=== PATIENT | female | born 1940 | race Caucasian/White ===

== ENCOUNTER → 2018-01-26 11:32 | Outpatient (CLI) | payer MEDICARE, OTHER, SELFPAY ==
[2018-01-26 13:27] LABS: Calcium 9.3 mg/dL (8.5-10.1); Free T4 (Free Thyroxine) 1.26 ng/dl (0.76-1.46); Thyroid Stimulating Hormone 0.48 uIU/ml (0.358-3.740)
[2018-01-27 13:55] LABS: Triiodothyronine (T3) Free 3.1 pg/mL (2.0-4.4)
== END ==
PROVIDERS: PCP Nurse Practitioner Family; Visit Provider Otolaryngology
DX: D49.7 Neoplasm of unspecified behavior of endocrine glands and other parts of nervous system (principal)
CPT/HCPCS: 36415; 82310; 84439; 84443; 84481

== ENCOUNTER → 2019-01-25 11:32 | Outpatient (CLI) | payer MEDICARE, OTHER, SELFPAY ==
[2019-01-25 13:29] LABS: Calcium 9.4 mg/dL (8.5-10.1); Free T4 (Free Thyroxine) 1.31 ng/dl (0.76-1.46); Thyroid Stimulating Hormone 1.17 uIU/ml (0.358-3.740)
[2019-01-27 17:07] LABS: Triiodothyronine (T3) Free 3.4 pg/mL (2.0-4.4)
== END ==
PROVIDERS: Visit Provider Otolaryngology
DX: E78.5 Hyperlipidemia, unspecified (principal); E07.9 Disorder of thyroid, unspecified
CPT/HCPCS: 36415; 82310; 84439; 84443; 84481

== ENCOUNTER → 2019-02-15 11:52 | Outpatient (CLI) | payer MEDICARE, OTHER, SELFPAY ==
[2019-02-15 14:14] LABS: Alanine Aminotransferase 36 U/L (12-78); Albumin Level 3.7 gm/dL (3.4-5.0); Alkaline Phosphatase 118 U/L (46-116); Aspartate Amino Transferase 25 U/L (15-37); Bilirubin,Direct 0.1 mg/dL (0.0-0.2); Bilirubin,Indirect 0.6 mg/dL (0.0-0.9); Bilirubin,Total 0.7 mg/dL (0.2-1.0); Chol/HDL Ratio 2.9 (1-3.5); Cholesterol 138 mg/dL (140-200); HDL Cholesterol 47 mg/dL (29-89); LDL Cholesterol 62 mg/dL (0-130); Total Protein,Serum 6.8 gm/dL (6.4-8.2); Triglycerides 143 mg/dL (30-200); VLDL Cholesterol 29 mg/dL (0-40)
== END ==
PROVIDERS: Visit Provider Physician Assistant
DX: E78.2 Mixed hyperlipidemia (principal); I25.10 Atherosclerotic heart disease of native coronary artery without angina pectoris; R06.09 Other forms of dyspnea
CPT/HCPCS: 36415; 80061; 80076

== ENCOUNTER → 2019-08-11 15:30 | Outpatient (CLI) | payer MEDICARE, OTHER, SELFPAY ==
[2019-08-11 15:34] LABS: MANUAL DIFFERENTIAL MANUAL DIFFERENTIAL (MANUAL DIFF)
[2019-08-11 16:01] LABS: Basophils # 0.1 K/mm3 (0-0.2); Basophils % 0.7 % (0.1-2.0); Eosinophils % 0.1 % (0.1-12.0); Hematocrit 41.8 % (37.0-47.0); Hemoglobin 14.2 g/dL (12.2-16.2); Lymphocytes # 2.5 K/mm3 (0.7-4.5); Lymphocytes % 19.4 % (10-50); Mean Corpuscular HGB Conc 33.9 g/dL (31.8-35.4); Mean Corpuscular Hemoglobin 31.6 pg (27.0-31.2); Mean Corpuscular Volume 93.4 fl (81-99); Monocytes # 0.4 K/mm3 (0.1-1.0); Neutrophils # 9.8 K/mm3 (1.8-7.8); Neutrophils % 76.9 % (37.0-80.0); Platelet Count 354 K/mm3 (142-424); Red Blood Count 4.48 M/mm3 (4.20-5.40); Red Cell Distribution Width 13.7 % (11.5-17.5); White Blood Count 12.7 K/mm3 (4.8-10.8)
[2019-08-11 18:25] LABS: Lymphocytes % 23 % (10-50); Monocytes % 7 % (2-9); Neutrophils % 70 % (42-76); Platelet Estimate Normal; RBC Morphology Normal; Total Cells Counted 100
[2019-08-11 19:57] LABS: Chloride 96 mmol/L (98-107); Potassium 4.1 mmoL/L (3.5-5.1); Sodium 134 mmol/L (136-145)
[2019-08-11 19:59] LABS: Alanine Aminotransferase 37 U/L (12-78); Aspartate Amino Transferase 33 U/L (14-36); Blood Urea Nitrogen 14 mg/dl (7-17); Estimated Glomerular Filt Rate 70 ml/min (>60); GFR (African American) 84 ML/MIN (>60)
[2019-08-11 20:00] LABS: Albumin Level 4.4 g/dl (3.5-5.0); Albumin/Globulin Ratio 1.8 (1.1-1.8); Alkaline Phosphatase 82 U/L (38-126); Anion Gap 13.1 mEq/L (5-15); Bilirubin,Total 0.6 mg/dl (0.2-1.3); Calcium 9.8 mg/dl (8.4-10.2); Carbon Dioxide 29 mmol/L (22.0-30.0); Globulin 2.5 g/dL (1.3-3.2); Glucose 99 mg/dl (74-100); Total Protein,Serum 6.9 g/dl (6.3-8.2)
== END ==
PROVIDERS: Visit Provider Otolaryngology
DX: J01.90 Acute sinusitis, unspecified (principal); R06.09 Other forms of dyspnea
CPT/HCPCS: 36415; 80053; 85007; 85014; 85018; 85048; 85049

== ENCOUNTER → 2019-08-23 08:10 | Outpatient (CLI) | payer MEDICARE, OTHER, SELFPAY ==
--- NOTE | 2019-08-23 08:24 | CT_ITS ---
PROCEDURE: CT SINUS WO CON CLINICAL HISTORY: sinusitis Chronic sinusitis, difficulty swallowing COMPARISON: No exams were available for comparison TECHNIQUE: Axial images obtained with sagittal and coronal reformats. All CT scans at the facility use one or more dose reduction, viz: automated exposure control, ma/kV adjustment per patient size (including targeted exams where dose is matched to indication, i.e. head), or iterative reconstruction technique. FINDINGS: The frontal, ethmoid, maxillary, and sphenoid sinuses have an unremarkable appearance with no significant mucosal thickening, masses, cysts, or air-fluid levels. There is moderate leftward nasal septal deviation. There are small bilateral neri bullosa slightly larger on the right. The ostiomeatal units are patent. There are mild to moderate osteoarthritic changes of the TMJs on both sides. No orbits have an unremarkable appearance IMPRESSION: 1. Unremarkable CT of the paranasal sinuses. No evidence of sinusitis. 2. Moderate leftward nasal septal deviation with bilateral neri bullosa right larger than left. 3. Bilateral TMJ arthropathy Dictated by: Terence Vazquez MD 08/23/2019 18:24 Electronically signed by Terence Vazquez MD in [place] 08/23/2019 18:24
--- NOTE | 2019-08-23 08:24 | CT_ITS ---
PROCEDURE: CT CHEST WO/W CON CLINCAL INDICATION: sinusitis Cough and congestion, difficulty swallowing COMPARISON: THY US THYROID from 11/17/2014 TECHNIQUE: IV Contrast: 75ml Optiray 350 Axial images obtained with sagittal and coronal reformats. All CT scans at the facility use one or more dose reduction, viz: automated exposure control, ma/kV adjustment per patient size (including targeted exams where dose is matched to indication, i.e. head), or iterative reconstruction technique. FINDINGS: HEART AND MEDIASTINAL STRUCTURES: Unenhanced images demonstrates mild coronary artery calcification. There is a small hiatal hernia. The left lobe of the thyroid gland is enlarged the causing some minimal deviation of the trachea toward the right. No mediastinal or hilar mass is evident. There is air present throughout the esophagus with a small air-fluid level in the esophagus which could be related to reflux. No mediastinal or hilar mass. No evidence of aortic aneurysm or dissection. LUNGS AND PLEURAL SPACES: There are atelectatic or fibrotic changes in the right lower lobe. There is eventration the diaphragm on the right posteriorly with right lower lobe volume loss. There are mild atelectatic changes in the left lung base with a calcified granuloma in the left lower lobe. No central obstructing lesions the BONY STRUCTURES: Kyphoscoliosis of the thoracic spine convex right. There is somewhat guevara-shaped hemithorax which may be seen with osteopenia UPPER ABDOMEN: Hiatal hernia ADDITIONAL FINDINGS: No other significant abnormalities. IMPRESSION: 1. Enlarged left lobe of the thyroid gland 2. Hiatal hernia with gas in the esophagus and esophageal air-fluid level. This may be seen with reflux or distal esophageal narrowing. Barium swallow may provide further evaluation. 3. Elevated right hemidiaphragm with right lower lobe volume loss with mild atelectatic change in the left lung base. By the Dictated by: Terence Vazquez MD 08/24/2019 08:15 Electronically signed by Terence Vazquez MD in [place] 08/24/2019 08:15
[2019-08-23 08:31] LABS: Chloride 98 mmol/L (98-107); Potassium 3.3 mmoL/L (3.5-5.1); Sodium 134 mmol/L (136-145)
[2019-08-23 08:33] LABS: Alanine Aminotransferase 42 U/L (12-78); Aspartate Amino Transferase 37 U/L (14-36); Blood Urea Nitrogen 11 mg/dl (7-17); Estimated Glomerular Filt Rate 70 ml/min (>60); GFR (African American) 84 ML/MIN (>60)
[2019-08-23 08:34] LABS: Albumin Level 4.6 g/dl (3.5-5.0); Albumin/Globulin Ratio 1.8 (1.1-1.8); Alkaline Phosphatase 73 U/L (38-126); Anion Gap 9.3 mEq/L (5-15); Bilirubin,Total 0.7 mg/dl (0.2-1.3); Calcium 9.7 mg/dl (8.4-10.2); Carbon Dioxide 30 mmol/L (22.0-30.0); Chol/HDL Ratio 2.3 (1-3.5); Cholesterol 160 mg/dl (140-200); Globulin 2.5 g/dL (1.3-3.2); Glucose 101 mg/dl (74-100); HDL Cholesterol 69 mg/dl (40-60); Total Protein,Serum 7.1 g/dl (6.3-8.2); Triglycerides 180 mg/dl (30-150); VLDL Cholesterol 36 mg/dL (0-40)
[2019-08-23 08:45] LABS: Direct LDL Cholesterol 80.46 mg/dL (100-129)
== END ==
PROVIDERS: PCP Nurse Practitioner Family; Visit Provider Otolaryngology
DX: J01.90 Acute sinusitis, unspecified (principal); R06.09 Other forms of dyspnea; E78.2 Mixed hyperlipidemia; I10 Essential (primary) hypertension
CPT/HCPCS: 36415; 70486; 71270; 80053; 80061; Q9967

== ENCOUNTER → 2019-11-09 08:40 | Outpatient (CLI) | payer MEDICARE, OTHER, SELFPAY ==
--- NOTE | 2019-11-09 08:40 | FL_ITS ---
PROCEDURE: FL BARIUM SWALLOW CLINICAL INDICATION: chronic cough and reflux. COMPARISON: No exams were available for comparison TECHNIQUE: FLUOROSCOPY TIME : 2 minutes 1 second. Single contrast esophagram was performed. Fluoroscopic spot images were obtained. FINDINGS: There is demonstrated normal swallowing mechanism. Age related tertiary contractions are seen in the esophagus. The esophagus remain in normal course and caliber. A small hiatal hernia is seen with real-time significant gastroesophageal reflux. No narrowing or stricture is visualized in the esophagus. There is no evidence of ulceration or other deformity noted within the stomach. IMPRESSION: A small hiatal hernia with gastroesophageal reflux is seen. Dictated by: Cheryl Cook 11/09/2019 11:49 Electronically signed by Cheryl Cook in [place] 11/09/2019 11:49
--- NOTE | 2019-11-09 08:40 | US_ITS ---
PROCEDURE: US THYROID CLINICAL INDICATION: thyroid nodule Thyroid nodule, prior right thyroidectomy COMPARISON: 11/17/2014 FINDINGS: There been a prior right thyroidectomy. The left lobe measures 4.4 x 2.3 cm with heterogeneous echogenicity. There is ill-defined area of decreased echogenicity in the lower pole on the left measuring 11 mm by 16 mm. This is ill-defined and may only represent heterogeneous echogenicity of the thyroid as opposed to a true nodule. This may have been present on an older exam of 11/17/2014. IMPRESSION: Prior right thyroidectomy. Questionable 16 x 11 mm heterogeneous nodule along the lower pole on the left. Recommend six-month follow-up. This may be unchanged compared to an older exam. Dictated by: Terence Vazquez MD 11/10/2019 10:18 Electronically signed by Terence Vazquez MD in [place] 11/10/2019 10:18
[2019-11-09 12:44] LABS: Thyroid Stimulating Hormone 0.56 uIU/mL (0.465-4.68)
[2019-11-09 16:47] LABS: Free T4 (Free Thyroxine) 1.97 ng/dl (0.78-2.19)
[2019-11-10 10:12] LABS: Thyroid Peroxidase Antibodies 9 IU/mL (0-34)
[2019-12-14 12:45] LABS: Thyroid Stimulating Immunoglob <0.10
== END ==
PROVIDERS: PCP Nurse Practitioner Family; Visit Provider Otolaryngology
DX: E03.9 Hypothyroidism, unspecified (principal); E04.1 Nontoxic single thyroid nodule
CPT/HCPCS: 36415; 74220; 76536; 84439; 84443; 84445; 86376

== ENCOUNTER → 2019-11-09 10:04 | Outpatient (CLI) | payer MEDICARE, OTHER, SELFPAY | PROVIDERS: Visit Provider Otolaryngology | DX: E03.9 Hypothyroidism, unspecified (principal) | CPT/HCPCS: 36415; 84439; 84443; 84445; 86376 ==

== ENCOUNTER → 2019-11-30 09:41 | Outpatient (CLI) | payer MEDICARE, OTHER, SELFPAY ==
[2019-11-30 10:30] VITALS: PULSE 86; PULSE 90
== END ==
PROVIDERS: PCP Nurse Practitioner Family; Visit Provider Internal Medicine Pulmonary Disease
DX: R06.00 Dyspnea, unspecified (principal)
CPT/HCPCS: 94060; 94640; 94727; 94729

== ENCOUNTER 2019-12-22 09:58 | Outpatient (RCR) | payer MEDICARE, OTHER, SELFPAY | END 2020-08-21 13:17 | disposition home or self-care (01) | LOC: PT 09:58 | PROVIDERS: Visit Provider Internal Medicine Pulmonary Disease | DX: R06.00 Dyspnea, unspecified (principal) ==

== ENCOUNTER → 2020-02-16 14:45 | Outpatient (CLI) | payer MEDICARE, OTHER, SELFPAY ==
[2020-02-16 16:07] LABS: Basophils % 0.4 % (0.1-2.0); Eosinophils # 0.2 K/mm3 (0.0-0.4); Eosinophils % 1.4 % (0.1-12.0); Hematocrit 40.4 % (37.0-47.0); Hemoglobin 15.2 g/dL (12.2-16.2); Lymphocytes # 4.8 K/mm3 (0.7-4.5); Lymphocytes % 41.6 % (10-50); Mean Corpuscular HGB Conc 37.6 g/dL (31.8-35.4); Mean Corpuscular Hemoglobin 35.1 pg (27.0-31.2); Mean Corpuscular Volume 93.5 fl (81-99); Mean Platelet Volume 8.6 fl (7.4-10.4); Monocytes # 0.8 K/mm3 (0.1-1.0); Monocytes % 6.7 % (1.7-9.3); Neutrophils # 5.7 K/mm3 (1.8-7.8); Neutrophils % 49.8 % (37.0-80.0); Platelet Count 296 K/mm3 (142-424); Red Blood Count 4.32 M/mm3 (4.20-5.40); Red Cell Distribution Width 13.7 % (11.5-17.5); White Blood Count 11.5 K/mm3 (4.8-10.8)
[2020-02-20 14:10] LABS: D001-IgE D pteronyssinus 0.13 kU/L (Class 0/I); D002-IgE D farinae <0.10 kU/L (Class 0); E001-IgE Cat Dander <0.10 kU/L (Class 0); E005-IgE Dog Dander <0.10 kU/L (Class 0); G002-IgE Bermuda Grass <0.10 kU/L (Class 0); G006-IgE Timothy Grass <0.10 kU/L (Class 0); I006-IgE Cockroach, German <0.10 kU/L (Class 0); Immunoglobulin E, Total 19 IU/mL (6-495); M001-IgE Penicillium chrysogen <0.10 kU/L (Class 0); M002-IgE Cladosporium herbarum <0.10 kU/L (Class 0); M003-IgE Aspergillus fumigatus <0.10 kU/L (Class 0); M006-IgE Alternaria alternata <0.10 kU/L (Class 0); T001-IgE Maple/Box Elder <0.10 kU/L (Class 0); T006-IgE Cedar, Mountain <0.10 kU/L (Class 0); T007-IgE Oak, White <0.10 kU/L (Class 0); T008-IgE Elm, American <0.10 kU/L (Class 0); T010-IgE Walnut <0.10 kU/L (Class 0); T011-IgE Maple Leaf Sycamore <0.10 kU/L (Class 0); T014-IgE Cottonwood <0.10 kU/L (Class 0); T015-IgE Ash, White <0.10 kU/L (Class 0); T022-IgE Pecan, Hickory <0.10 kU/L (Class 0); T070-IgE White Mulberry <0.10 kU/L (Class 0); W001-IgE Ragweed, Short <0.10 kU/L (Class 0); W011-IgE Thistle, Russian <0.10 kU/L (Class 0); W014-IgE Pigweed, Common <0.10 kU/L (Class 0); W016-IgE Rough Marshelder <0.10 kU/L (Class 0)
[2020-02-20 15:11] LABS: E072-IgE Mouse Urine <0.10 kU/L (Class 0)
[2020-02-21 10:52] LABS: Immunoglobulin E, Total 19 IU/mL (6-495)
== END ==
PROVIDERS: Visit Provider Internal Medicine Pulmonary Disease
DX: R06.2 Wheezing; J44.9 Chronic obstructive pulmonary disease, unspecified
CPT/HCPCS: 36415; 82785; 85025; 86003

== ENCOUNTER → 2020-05-07 08:59 | Outpatient (POV) | payer MEDICARE, OTHER, SELFPAY | PROVIDERS: Visit Provider Nurse Practitioner Family | DX: Z00.00 Encounter for general adult medical examination without abnormal findings (principal) ==

== ENCOUNTER → 2020-06-12 12:53 | Outpatient (CLI) | payer MEDICARE, OTHER, SELFPAY ==
--- NOTE | 2020-06-12 12:53 | US_ITS ---
PROCEDURE: US THYROID CLINICAL INDICATION: thyroid nodule Follow-up nodule COMPARISON: US US THYROID from 11/09/2019 FINDINGS: The right lobe has been removed. The left lobe measures 5 x 2 x 2.5 cm. There is a vague nodular area in the lower pole on the left not significantly changed. This area measures approximately 14 x 10 mm and is not significantly changed. IMPRESSION: No change status post right thyroidectomy and vague nodularity within the enlarged left lobe Dictated by: Terence Vazquez MD 06/12/2020 17:55 Terence Vazquez MD in [place] 06/12/2020 17:55
== END ==
PROVIDERS: PCP Nurse Practitioner Family; Visit Provider Otolaryngology
DX: E03.9 Hypothyroidism, unspecified (principal); E04.1 Nontoxic single thyroid nodule
CPT/HCPCS: 76536

== ENCOUNTER 2020-07-23 12:39 | Emergency (ER) | payer MEDICARE, OTHER, SELFPAY ==
[2020-07-23 13:15] VITALS: BP 138/89; PULSE 81; RESP 19; TEMP 37; O2SAT 100; BMI 27.6
--- NOTE | 2020-07-23 13:54 | HMH.EDUTC ---
[facility] [place] Dis[place] Clinical Impression: Sinusitis Qualifiers: Sinusitis location: unspecified location Chronicity: unspecified Qualified Code(s): J32.9 - Chronic sinusitis, unspecified Disposition: Home, Self-Care Condition on Discharge: Good Instructions: Sinusitis, DI for Cough -- Adult, Benzonatate Additional Instructions: *Monitor Temp, Over the counter Motrin or Tylenol as directed/as needed Tylenol every 4 hours and Motrin every 6 hours (as long as your family doctor has told you that you can take it) for fever or pain. and straight to ER if unable to lower temp less than 101.0 after medication given *Warm salt water gargles may help to soothe the throat *Throat Lozenges *Warm fluids like tea with honey may help to soothe the throat *Sleep elevated *Humidifier/Vaporizer Follow up IMMEDIATELY for new or worsening symptoms or no Noticeable improvement over the next 48-72 hours. 911 for difficulty breathing or swallowing Prescriptions: Benzonatate [Tessalon Perle 100mg Cap*] 100 mg PO TID PRN #12 cap PRN Reason: Cough Transmission Status: Received by [id number] Referrals: Melonie Dobbs APRN [Primary Care Provider] - As needed Time of Disposition: 14:15 Medical Decision Making - Ishmael Inquiry Pt receiving controlled substance: No Ishmael was queried for this patient: No Vital Signs: 07/23/20 13:15 07/23/20 14:21 Temperature 98.6 F 98.6 F Temperature Source Oral Pulse Rate 81 Pulse Rate [Right Brachial] 81 Respiratory Rate 19 19 Blood Pressure 138/89 Blood Pressure [Right Arm] 138/89 Blood Pressure Mean [Right Arm] 105 Blood Pressure Source [Right Arm] Automatic Cuff Blood Pressure Position [Right Arm] Sitting 02 Sat by Pulse Oximetry 100 Oxygen Delivery Method Room Air Orders (Tests/Meds): ED MEDICATIONS Discontinued Medications Generic Name Dose Route Start Last Admin Trade Name Freq PRN Reason Stop Dose Admin Ceftriaxone Sodium 1 gm 07/23/20 14:06 07/23/20 14:13 Ceftriaxone 1gm Vial IM 07/23/20 14:07 1 gm ONCE ONE Administration Protocol Lidocaine HCl 0 ml 07/23/20 14:06 07/23/20 14:13 Lidocaine 1% 5ml Pf Vial IM 07/23/20 14:07 2.1 ml ONCE ONE Administration [facility] [place] HPI - General Stated complaint: cough Time Seen by Provider: 07/23/20 13:54 Mode of Arrival: Ambulatory Source of Information: Patient Limitations: No Limitations Description of Symptoms (Recalled from Triage Doc. by RN): PATIENT C/O COUGH AND SINUS DRAINAGE ON AND OFF SINCE APRIL HEENT Symptoms (Recalled from RN notes): Yes Resp Symptoms (Recalled from RN notes): Yes Skin Symptoms (Recalled from RN notes): No MS Symptoms (Recalled from RN notes): No Functional Status (Recalled from RN notes): WNL - History of Present Illness Provider Complaint: Patient state that she has been having recurring sinus infections on and off since Apr States that she has been having pressure and drainage for the last couple of weeks and she is tired of it State that she has the drainage in the back of her throat and making her cough States that she took a zpack last month for it and it came right back - Related Data Home Medications Medication Instructions Recorded Confirmed aspirin 81 mg tablet,delayed 81 mg PO DAILY tab 09/16/17 06/18/20 release coenzyme Q10 200 mg capsule 200 mg PO DAILY cap 09/16/17 06/18/20 magnesium 250 mg tablet 250 mg PO DAILY tab 09/16/17 06/18/20 tiotropium bromide 2.5 2 inh INHALATION DAILY g 09/17/17 06/18/20 mcg/actuation mist for inhalation beclomethasone dipropionate 80 INTRANASAL 08/29/19 06/18/20 mcg/actuation nasal HFA inhaler trazodone 50 mg tablet 50 mg PO QHS PRN tab 10/21/19 06/18/20 albuterol sulfate 90 mcg/actuation 1 inh INHALATION QID 11/17/19 06/18/20 aerosol inhaler fluticasone propionate 110 1 puff INHALATION BID 11/17/19 06/18/20 mcg/actuation HFA aerosol inhaler montelukast 10 mg tablet 10 mg PO DAILY 03/28
[2020-07-23 14:21] VITALS: BP 138/89; PULSE 81; RESP 19; TEMP 37; O2SAT 100
== END 2020-07-23 14:25 | disposition home or self-care (01) ==
PROVIDERS: Emergency Provider Nurse Practitioner; PCP Nurse Practitioner Family
DX: J32.9 Chronic sinusitis, unspecified (principal); F41.8 Other specified anxiety disorders; Z79.899 Other long term (current) drug therapy
CPT/HCPCS: G0463; 96372; 99202

== ENCOUNTER 2020-08-03 13:10 | Emergency (ER) | payer MEDICARE, OTHER, SELFPAY ==
[2020-08-03 13:23] VITALS: BP 151/86; PULSE 79; RESP 16; TEMP 36.9; O2SAT 98; BMI 32.5
--- NOTE | 2020-08-03 13:29 | HMH.EDUTC ---
[facility] [place]: Chronic cough Disposition: Home, Self-Care Condition on Discharge: Good Instructions: DI for Cough -- Adult Additional Instructions: Follow up with PCP; Follow up with ENT, gastroenterology, pulmonology Add Pepcid as an antihistamine/antacid. Add Breo inhaler. Stop Losartan. Try Enalapril based on studies I read on [facility]. Prescriptions: Fluticasone/Vilanterol [Breo Ellipta 200-25 Mcg INH] 1 inh IH DAILY 30 Days #1 device Transmission Status: Pending to [facility] Enalapril Maleate 10 mg PO DAILY #30 tab Transmission Status: Pending to [facility] Famotidine [Pepcid] 40 mg PO DAILY 2 Days #30 tab Transmission Status: Pending to [id number] Referrals: Melonie Dobbs APRN [Primary Care Provider] - Time of Disposition: 14:06 Medical Decision Making - Ishmael Inquiry Pt receiving controlled substance: No Vital Signs: 08/03/20 13:23 Temperature 98.5 F Temperature Source Oral Pulse Rate [Right] 79 Respiratory Rate 16 Blood Pressure [Right Arm] 151/86 H Blood Pressure Mean [Right Arm] 107 Blood Pressure Source [Right Arm] Automatic Cuff Blood Pressure Position [Right Arm] Sitting 02 Sat by Pulse Oximetry 98 Oxygen Delivery Method Room Air Medical Decision Narrative: Reviewed old records from ENT, pulmonology [facility] [place] - General Stated complaint: cough, drainage Time Seen by Provider: 08/03/20 13:29 - History of Present Illness Provider Complaint: Patient presents with chronic cough. She has had a cough for over a year. She initially thought it was related to atorvastatin as it did stop for a few months after she stopped taking it. She has seen ENT, gastroenterology, pulmonology. Her symptoms had mostly stopped the last time she saw pulmonology. She has tried nasal sprays, anti-histamines, Singulair. She is on Omeprazole. She thinks it is caused by her Losartan. She does have HTN. She does have hiatal hernia. Onset (ago): year(s) (1) Location: chest, abdomen Relieving factors: none Exacerbating factors: none Treatments prior to arrival: other (antihistamines, nasal sprays, Singulair, Omeprazole) - Related Data Home Medications Medication Instructions Recorded Confirmed aspirin 81 mg tablet,delayed 81 mg PO DAILY tab 09/16/17 06/18/20 release coenzyme Q10 200 mg capsule 200 mg PO DAILY cap 09/16/17 06/18/20 magnesium 250 mg tablet 250 mg PO DAILY tab 09/16/17 06/18/20 tiotropium bromide 2.5 2 inh INHALATION DAILY g 09/17/17 06/18/20 mcg/actuation mist for inhalation beclomethasone dipropionate 80 INTRANASAL 08/29/19 06/18/20 mcg/actuation nasal HFA inhaler trazodone 50 mg tablet 50 mg PO QHS PRN tab 10/21/19 06/18/20 albuterol sulfate 90 mcg/actuation 1 inh INHALATION QID 11/17/19 06/18/20 aerosol inhaler fluticasone propionate 110 1 puff INHALATION BID 11/17/19 06/18/20 mcg/actuation HFA aerosol inhaler montelukast 10 mg tablet 10 mg PO DAILY 03/28/20 06/18/20 escitalopram oxalate 5 mg tablet 5 mg PO DAILY tab 04/26/20 06/18/20 Previous Rx's Medication Instructions Recorded levocetirizine 5 mg tablet 5 mg PO DAILY #90 tab 08/29/19 hydrochlorothiazide 12.5 mg tablet 12.5 mg PO DAILY #90 tab 10/21/19 losartan 50 mg tablet 50 mg PO DAILY #90 tab 10/21/19 metoprolol succinate 25 mg 25 mg PO DAILY #90 tab 10/21/19 tablet,extended release 24 hr omeprazole 40 mg capsule,delayed 40 mg PO DAILY #90 cap 10/21/19 release azelastine 137 mcg (0.1 %) nasal 1 spray INTRANASAL BID #30 ml 11/17/19 spray aerosol levothyroxine 88 mcg tablet 88 mcg PO DAILY #90 tab 03/01/20 Benzonatate [Tessalon Perle 100mg 100 mg PO TID PRN #12 cap 07/23/20 Cap*] Enalapril Maleate 10 mg PO DAILY #30 tab 08/03/20 Famotidine [Pepcid] 40 mg PO DAILY 2 Days #30 tab 08/03/20 Fluticasone/Vilanterol [Breo 1 inh IH DAILY 30 Days #1 device 08/03/20 Ellipta 200-25 Mcg INH] Allergies Allergy/AdvReac Type Severity React
[2020-08-03 14:10] VITALS: BP 151/80; PULSE 79; RESP 16; TEMP 36.8; O2SAT 98
== END 2020-08-03 14:10 | disposition home or self-care (01) ==
PROVIDERS: Emergency Provider Physician Assistant; PCP Nurse Practitioner Family
DX: R05 Cough (principal); F41.8 Other specified anxiety disorders; I10 Essential (primary) hypertension; E78.5 Hyperlipidemia, unspecified; Z79.899 Other long term (current) drug therapy
CPT/HCPCS: G0463; 99202

== ENCOUNTER → 2020-09-03 15:20 | Outpatient (CLI) | payer MEDICARE, OTHER, SELFPAY ==
--- NOTE | 2020-09-03 15:20 | CT_ITS ---
PROCEDURE: CT CHEST WO CON CLINICAL INDICATION: GGO Persistent cough COMPARISON: CT CT CHEST WO/W CON from 08/23/2019 TECHNIQUE: Axial images obtained with sagittal and coronal reformats. All CT scans at the facility use one or more dose reduction, viz: automated exposure control, ma/kV adjustment per patient size (including targeted exams where dose is matched to indication, i.e. head), or iterative reconstruction technique. FINDINGS: HEART AND MEDIASTINAL STRUCTURES: The left lobe of the thyroid gland is slightly enlarged with mild tracheal deviation toward the right not significantly changed. There appears to been a prior right thyroidectomy. No mediastinal or hilar mass. Coronary artery calcifications are present. There is a small hiatal hernia. LUNGS AND PLEURAL SPACES: The right hemidiaphragm is elevated with mild atelectatic change in the right lung base. Calcified granulomas present in the left lower lobe. No suspicious nodules or infiltrates. No effusions. There is mild prominence of the trachea measuring 2.2 cm in AP dimension. Minimal atelectatic changes are present in the left lung base BONY STRUCTURES: Mild kyphosis of the thoracic spine with partial fusion of T6 and T7 anteriorly similar to the previous exam. UPPER ABDOMEN: Small hiatal hernia. Gas is present in the esophagus which may indicate reflux. ADDITIONAL FINDINGS: No other significant abnormalities. IMPRESSION: Overall stable CT appearance of the chest. Mild prominence of the trachea measuring 2.2 cm in AP dimension. Persistent elevated right hemidiaphragm with minimal bibasilar atelectasis Dictated by: Terence Vazquez MD 09/04/2020 08:41 Terence Vazquez MD in [place] 09/04/2020 08:41
== END ==
PROVIDERS: PCP Nurse Practitioner Family; Visit Provider Internal Medicine Pulmonary Disease
DX: R91.8 Other nonspecific abnormal finding of lung field (principal)
CPT/HCPCS: 71250

== ENCOUNTER → 2020-11-05 08:38 | Outpatient (POV) | payer MEDICARE, OTHER, SELFPAY | PROVIDERS: Visit Provider Nurse Practitioner Family | DX: Z00.00 Encounter for general adult medical examination without abnormal findings (principal) ==

== ENCOUNTER → 2020-12-21 13:11 | Outpatient (CLI) | payer MEDICARE, OTHER, SELFPAY ==
[2020-12-24 03:36] LABS: D001-IgE D pteronyssinus 0.22 kU/L (Class 0/I); E001-IgE Cat Dander <0.10 kU/L (Class 0); E005-IgE Dog Dander <0.10 kU/L (Class 0); E072-IgE Mouse Urine <0.10 kU/L (Class 0); G002-IgE Bermuda Grass <0.10 kU/L (Class 0); G006-IgE Timothy Grass <0.10 kU/L (Class 0); I006-IgE Cockroach, German 0.15 kU/L (Class 0/I); Immunoglobulin E, Total 36 IU/mL (6-495); M001-IgE Penicillium chrysogen <0.10 kU/L (Class 0); M002-IgE Cladosporium herbarum <0.10 kU/L (Class 0); M003-IgE Aspergillus fumigatus <0.10 kU/L (Class 0); M006-IgE Alternaria alternata <0.10 kU/L (Class 0); T001-IgE Maple/Box Elder <0.10 kU/L (Class 0); T003-IgE Common Silver Birch <0.10 kU/L (Class 0); T006-IgE Cedar, Mountain 0.11 kU/L (Class 0/I); T007-IgE Oak, White <0.10 kU/L (Class 0); T008-IgE Elm, American <0.10 kU/L (Class 0); T010-IgE Walnut <0.10 kU/L (Class 0); T011-IgE Maple Leaf Sycamore <0.10 kU/L (Class 0); T014-IgE Cottonwood <0.10 kU/L (Class 0); T015-IgE Ash, White <0.10 kU/L (Class 0); T022-IgE Pecan, Hickory <0.10 kU/L (Class 0); T070-IgE White Mulberry <0.10 kU/L (Class 0); W001-IgE Ragweed, Short <0.10 kU/L (Class 0); W011-IgE Thistle, Russian <0.10 kU/L (Class 0); W014-IgE Pigweed, Common <0.10 kU/L (Class 0); W018-IgE Sheep Sorrel <0.10 kU/L (Class 0)
== END ==
PROVIDERS: Visit Provider Internal Medicine Pulmonary Disease
DX: R05 Cough (principal); R06.00 Dyspnea, unspecified; J30.89 Other allergic rhinitis
CPT/HCPCS: 82785; 86003

== ENCOUNTER → 2021-01-18 13:48 | Outpatient (CLI) | payer MEDICARE, OTHER, SELFPAY ==
[2021-01-18 15:25] LABS: Thyroid Stimulating Hormone 1.37 uIU/mL (0.465-4.68)
[2021-01-18 15:29] LABS: Free T4 (Free Thyroxine) 1.93 ng/dl (0.78-2.19)
== END ==
PROVIDERS: Visit Provider Otolaryngology
DX: E04.1 Nontoxic single thyroid nodule (principal)
CPT/HCPCS: 36415; 84439; 84443

== ENCOUNTER 2021-01-21 13:51 | Emergency (ER) | payer MEDICARE, OTHER, SELFPAY ==
[2021-01-21 15:15] VITALS: BP 149/89; PULSE 83; RESP 19; TEMP 36.8; O2SAT 98; BMI 26.3
--- NOTE | 2021-01-21 16:07 | HMH.EDUTC ---
[facility] [place] Clinical Impression: Constipation Qualifiers: Constipation type: unspecified constipation type Qualified Code(s): K59.00 - Constipation, unspecified Disposition: Home, Self-Care Condition on Discharge: Good Instructions: Cough (Alternative Therapy), DI for Cough -- Adult Additional Instructions: *Monitor Temp, Over the counter Motrin or Tylenol as directed/as needed Tylenol every 4 hours and Motrin every 6 hours (as long as your family doctor has told you that you can take it) for fever or pain. and straight to ER if unable to lower temp less than 101.0 after medication given *Warm salt water gargles may help to soothe the throat *Throat Lozenges *Warm fluids like tea with honey may help to soothe the throat *Sleep elevated *Humidifier/Vaporizer Follow up with Family Doctor for further evaluation Straight to ER if pain returns or worsens Return if needed Make sure to drink plenty of fluids like water after taking medication to make your bowel move Follow up IMMEDIATELY for new or worsening symptoms or no Noticeable improvement over the next 48-72 hours. 911 for difficulty breathing or swallowing Prescriptions: Magnesium Citrate [Magnesium Citrate 10oz Bottle] 150 ml PO ONCE #150 ml Transmission Status: Received by [facility] polyethylene glycoL 3350 [Miralax 17gm Packet] 17 gm PO DAILY #30 packet Transmission Status: Received by [id number] Referrals: Melonie Dobbs APRN [Primary Care Provider] - As needed Time of Disposition: 17:35 Medical Decision Making - Ishmael Inquiry Pt receiving controlled substance: No Ishmael was queried for this patient: No Vital Signs: 01/21/21 15:15 01/21/21 17:36 Temperature 98.3 F 98.3 F Temperature Source Oral Pulse Rate 83 Pulse Rate [Right Brachial] 83 Respiratory Rate 19 19 Blood Pressure 149/89 H Blood Pressure [Right Arm] 149/89 H Blood Pressure Mean [Right Arm] 109 Blood Pressure Source [Right Arm] Automatic Cuff Blood Pressure Position [Right Arm] Sitting 02 Sat by Pulse Oximetry 98 Oxygen Delivery Method Room Air - Lab Data Lab results reviewed: Yes: I reviewed the patient's lab results. Lab Results 01/21/21 17:09: Urine Color Yellow, Urine Appearance Clear, Urine pH 6.0, Ur Specific [place] 1.005, Urine Protein Negative, Urine Glucose (UA) Negative, Urine Ketones Negative, Urine Blood Negative, Urine Nitrate Negative, Urine Bilirubin Negative, Urine Urobilinogen 0.2, Ur Leukocyte Esterase Negative - Radiology Data #1 Image(s): KUB Image Reviewed: Yes I have reviewed radiologist's interpretation IMPRESSION: 1. Nonobstructive bowel gas pattern. 2. Severe constipation. Medical Decision Narrative: Discussed with patient and recommended transfer to the ED for CT and further testing and labs and patient declined states that she didnt have time today she would return tomorrow if needed that she just wanted to go home Discussed with patient and she agreed to KUB still awaiting patient to urinate to collect specimen for testing to r/o uti Patient reports that she has had a chronic cough since 2019 Patient urinated and UA complete Patient states that she has take mag citrate in the past medication discussed and dosed per pharmacy [facility] [place] - General Stated complaint: left side pain Time Seen by Provider: 01/21/21 16:07 Mode of Arrival: Ambulatory Source of Information: Patient Limitations: No Limitations Description of Symptoms (Recalled from Triage Doc. by RN): PATIENT C/O INTERMITTEN LEFT SIDE PAIN X 3 WEEKS HEENT Symptoms (Recalled from RN notes): No Resp Symptoms (Recalled from RN notes): No Skin Symptoms (Recalled from RN notes): No MS Symptoms (Recalled from RN notes): Yes Functional Status (Recalled from RN notes): WNL - History of Present Illness Provider Complaint: Patient states that she has been having pain on and off in her left side for several weeks States that last week she had
--- NOTE | 2021-01-21 16:15 | XR_ITS ---
PROCEDURE INFORMATION: Exam: XR Abdomen Exam date and time: 01/21/2021 4:15 PM Age: 80 years old Clinical indication: Abdominal pain; Localized; Left lower quadrant (llq); Additional info: Constipation TECHNIQUE: Imaging protocol: XR of the abdomen. Views: Frontal supine view of the abdomen. 1 View. COMPARISON: CT CHEST WO CON 09/03/2020 3:36 PM FINDINGS: Lungs: Lung bases are clear. Gastrointestinal tract: Nonobstructive bowel gas pattern. There is excessive colonic stool content. Intraperitoneal space: There is no free intraperitoneal air. Vasculature: There are numerous benign phleboliths in the pelvis. Bones/joints: No acute skeletal abnormality or aggressive osseous lesion. IMPRESSION: 1. Nonobstructive bowel gas pattern. 2. Severe constipation.
[2021-01-21 17:10] LABS: Apearance,Urine Clear (Clear); Bilirubin,Urine Negative (Negative); Blood, Urine Negative (Negative); Color,Urine Yellow (Yellow); Glucose,Urine (UA) Negative (Negative); Ketones,Urine Negative (Negative); Protein,Urine Negative (Negative); Specific Gravity, Urine 1.005 (1.005-1.030); UTC Leukocyte Esterase,Urine Negative (Negative); UTC Nitrate,Urine Negative (Negative); Urobilinogen,Urine 0.2 EU/dl (0.2)
[2021-01-21 17:36] VITALS: BP 149/89; PULSE 83; RESP 19; TEMP 36.8; O2SAT 98
== END 2021-01-21 17:42 | disposition home or self-care (01) ==
PROVIDERS: Emergency Provider Nurse Practitioner; PCP Nurse Practitioner Family
DX: K59.00 Constipation, unspecified (principal); I10 Essential (primary) hypertension; F41.8 Other specified anxiety disorders; E78.5 Hyperlipidemia, unspecified; Z79.899 Other long term (current) drug therapy
CPT/HCPCS: G0463; 74018; 81003; 99202

== ENCOUNTER → 2021-03-19 13:53 | Outpatient (CLI) | payer MEDICARE, OTHER, SELFPAY | PROVIDERS: Visit Provider Surgery | DX: Z01.812 Encounter for preprocedural laboratory examination (principal); Z11.52 Encounter for screening for COVID-19; Z13.810 Encounter for screening for upper gastrointestinal disorder | CPT/HCPCS: C9803; U0003; U0005 ==

== ENCOUNTER 2021-03-21 09:57 | Day surgery (SDC) | payer MEDICARE, OTHER, SELFPAY ==
[2021-03-15 11:15] VITALS: BMI 26.2
[2021-03-21 10:12] VITALS: BP 117/51; PULSE 93; RESP 18; TEMP 36.9; O2SAT 94
[2021-03-21 11:15] VITALS: O2SAT 97
--- NOTE | 2021-03-21 11:34 | HMH.SCOPE ---
- Procedure: Date: 03/21/21 Patient Date of :: 1940 Procedure Performed:: Esophagogastroduodenoscopy with biopsy Indications:: Cough Reflux Performing Provider:: Ariel Reyes MD Referring Provider:: . Sedation:: Monitored anesthesia care Procedure:: After informed consent was obtained the patient was taken to the endoscopy suite. Sedation ensued after the patient was transferred to the left lateral decubitus position. Pulse, blood pressure, and oxygen saturation were monitored throughout the procedure. The endoscope was advanced beyond the duodenal bulb. Retroflexion within the gastric lumen was accomplished. The gastroscope was carefully removed and the patient was transferred to recovery in stable condition. Please see findings and specimens below for detail. Findings:: Fairly large sliding hiatal hernia Patchy gastritis Gastric polyps (likely fundic gland polyps) Tortuous esophagus (particularly distally) Mild esophageal candidiasis Specimens:: Antral biopsy Proximal gastric body polyp Mid/distal gastric polyp Distal gastric polyp Recommendations:: Follow-up pathology Diflucan Discussion with regard to reflux/cough we ongoing. Additional radiographic studies may be required. Complications:: No immediate Estimated blood obtained (mL): 1
[2021-03-21 11:39] VITALS: BP 119/75; PULSE 93; RESP 18; TEMP 36.6; O2SAT 93
[2021-03-21 11:49] VITALS: BP 132/82; PULSE 90; RESP 18; O2SAT 96
[2021-03-21 11:59] VITALS: BP 138/75; PULSE 89; RESP 18; O2SAT 97
[2021-03-21 12:09] VITALS: BP 142/81; PULSE 86; RESP 18; O2SAT 97
--- NOTE | 2021-03-21 12:37 | P.PN_ITS ---
[facility] Anesthesia Checklist - Patient Identification Patient Identification: Arm Band, Verbal (Name & ) - Structural Data Admitted From: Home Planned Operative Procedure/s: EGD Consent for Planned Operative Procedure(s) Verified: Yes Verified Documents: Surgical Consent - Chart Verification Results Verified: None - Additional verifications Anesthesia Reactions: Yes (drowsiness) Hx Blood Transfusions: No Blood Transfusion Reaction: No - Cardiovascular Assessment Heart Sounds: S1 & S2 - Airway Assessment C-Spine Mobility Assessed: Yes TMJ Mobility Assessed: Yes Dentition: Good Dentition - Neurological Assessment Level of Consciousness: Awake, Alert, Appropriate - Anesthesia Plan Anesthesia Risk discussed: Yes ASA Class: II Anesthesia Type: General [facility] History Medical History: Reports:: Anxiety, Depression, Hyperlipidemia, Hypertension, Lung Disease Denies:: Cancer, Diabetes Mellitus Type 1, Diabetes Mellitus Type 2, Internal Pacemaker, MRSA, Seizures *Have you ever received a pneumonia vaccine?: Yes *Have you received a flu vaccine this season?: Yes Other Medical History: Reports: Arthritis. Denies: Blood Transfusion Reaction Anesthesia experience/problems:: none Laterality Cases: Right: Other, Bilateral: Tonsillectomy Other Surgeries: Yes: Colonoscopy, Hysterectomy-Partial, Thyroidectomy, Other. No: Pacemaker Amputation: No Fractures: No - *Social History Last grade of school completed: High school graduate Smoking Status: Never smoker Alcohol Intake: never Alcohol Intake Frequency:: other Substance Use Type: denies use *Occupational Status:: other Housing: house *Travel in the last 8 weeks: None - Psychiatric History Pschychiatric History:: Reports:: Anxiety, Depression Family Hx:: Coronary Artery Disease
== END 2021-03-21 12:10 | disposition home or self-care (01) ==
LOC: OUTP 09:58
PROVIDERS: PCP Nurse Practitioner Family; Visit Provider Surgery
PROC: 0DJ08ZZ Inspection of Upper Intestinal Tract, Via Natural or Artificial Opening Endoscopic (ICD-10-PCS; CPT 43235; principal; 2021-03-21 12:00)
DX: K44.9 Diaphragmatic hernia without obstruction or gangrene (principal); K29.60 Other gastritis without bleeding; K31.7 Polyp of stomach and duodenum; K22.89 Other specified disease of esophagus; B37.81 Candidal esophagitis; F41.9 Anxiety disorder, unspecified; F32.A Depression, unspecified; E78.5 Hyperlipidemia, unspecified; I10 Essential (primary) hypertension; J84.9 Interstitial pulmonary disease, unspecified; Z88.1 Allergy status to other antibiotic agents; Z88.8 Allergy status to other drugs, medicaments and biological substances
CPT/HCPCS: 43239; 88305

== ENCOUNTER → 2021-06-17 09:51 | Outpatient (CLI) | payer MEDICARE, OTHER, SELFPAY ==
[2021-06-17 10:40] VITALS: PULSE 83; PULSE 85
== END ==
PROVIDERS: PCP Nurse Practitioner Family; Visit Provider Internal Medicine Pulmonary Disease
DX: R06.09 Other forms of dyspnea (principal)
CPT/HCPCS: 94060; 94640; 94727; 94729

== ENCOUNTER → 2022-04-18 13:46 | Outpatient (CLI) | payer MEDICARE, OTHER, SELFPAY ==
--- NOTE | 2022-04-18 13:46 | US_ITS ---
FINAL REPORT CLINICAL HISTORY: thyroid nodule COMPARISON: June 12, 2020 FINDINGS: THYROID ULTRASOUND Sonographic images of the thyroid was obtained. The right lobe of the thyroid is surgically absent. The left lobe of the thyroid measures 4.7 x 3.8 x 2.8 cm, enlarged and increased from the prior exam of 4.9 x 2.5 x 2.2 cm. The isthmus measures 7 mm. A complex 5 mm cyst is noted in the inferior left lobe. There is an ill-defined hypoechoic nodule in the posterior left lobe measuring up to 13 mm which is similar from the prior exam. There is a 6 mm complex cystic nodule with possible calcification in the medial left lobe. IMPRESSION: 1. Enlarged left lobe increased from the prior exam. 2. Dominant left lobe lesion is stable in size, favor benign although there are 2 new sub cm nodules identified. TI-RADS 4. Recommend continued 12 month follow-up. Reviewed, Interpreted and Dictated by María Rivas MD Transcribed by Shanta Cervantes Authenticated and . [facility]
== END ==
PROVIDERS: PCP Nurse Practitioner Family; Visit Provider Otolaryngology
DX: E03.9 Hypothyroidism, unspecified (principal)
CPT/HCPCS: 76536

== ENCOUNTER 2023-04-07 07:35 | Emergency (ER) | payer MEDICARE, OTHER, SELFPAY ==
[2023-04-07] VITALS (7 sets, daily range): BP systolic 130–172; BP diastolic 59–89; PULSE 66–93; RESP 17–20; TEMP 36.7; O2SAT 82–96; BMI 26.2
--- NOTE | 2023-04-07 07:59 | HMH.EDGENADL ---
Discharge Plan Disposition Patient Disposition: Home, Self-Care Prescriptions Prescriptions: New ondansetron 4 mg tablet,disintegrating 4 mg PO Q6H PRN (Reason: nausea and vomiting) 5 Days Qty: 20 0RF No Action aspirin 81 mg tablet,delayed release (DR/EC) 81 mg PO DAILY montelukast 10 mg tablet 10 mg PO DAILY 90 Days Qty: 90 3RF fluticasone propionate [Flonase Allergy Relief] 50 mcg/actuation spray,suspension 2 spray intranasal DAILY 90 Days Qty: 16 2RF Rx Instructions: administer into each nostril azelastine 205.5 mcg (0.15 %) spray,non-aerosol 2 spray NS HS Qty: 30 3RF Rx Instructions: administer into each nostril albuterol sulfate 90 mcg/actuation HFA aerosol inhaler 1 inh inhalation BID PRN Rx Instructions: 1-2 puffs twice daily losartan 50 mg tablet 50 mg PO DAILY Qty: 90 3RF metoprolol succinate 25 mg tablet extended release 24 hr 25 mg PO DAILY Qty: 90 3RF omeprazole 40 mg capsule,delayed release(DR/EC) 40 mg PO DAILY Qty: 90 3RF atorvastatin 10 mg tablet 10 mg PO DAILY hydrochlorothiazide 12.5 mg capsule 12.5 mg PO DAILY Patient Comments: TAKE 1 CAPSULE BY MOUTH ONCE DAILY IN THE MORNING famotidine 20 mg tablet 40 mg PO HS Qty: 100 3RF fexofenadine-pseudoephedrine [Mishel-D 12 Hour] 60-120 mg tablet extended release 12 hr 1 tab PO Q12H PRN (Reason: allergic symptoms) Qty: 60 3RF [place] Saline Gel [place],Non-Aerosol 1 spray intranasal HS PRN (Reason: dry nasal passages) Qty: 22 0RF levothyroxine 88 mcg tablet 88 mcg PO DAILY Qty: 90 3RF Referrals Follow up/Referrals: Jeanna Lott APRN [Primary Care Provider] - See instructions Activity Restrictions/Add. Instructions Additional Instructions/Restrictions: You are unable to provide a stool sample for us today please follow-up with your primary care doctor soon as possible to get stool studies done which I think are still indicated. You had a critically low sodium today which was 125 after several liters of fluid corrected to 126 but still is critically low and I strongly encourage she stay in the hospital but understood you need to go home. Please return with any worsening symptoms otherwise follow-up closely with your primary care doctor for repeat testing of this and continue to take sodium and salt containing fluids such as Gatorade Powerade Pedialyte. Please return with any worsening symptoms at all and understand you are still at risk for having a seizure at home or having other neurologic complications of this. Clinical Impressions Clinical Impression: Nausea, Diarrhea, Atrioventricular block, first degree, Acute dehydration, Acute hyponatremia Instructions Patient Instructions: DI for Diarrhea and Traveler's Diarrhea -- Adult, DI for Diarrhea and Traveler's Diarrhea -- Child, DI for Nausea -- Adult, DI for Nausea -- Child Discharge ED Provider: Ángel Bardales General Adult HPI General Chief complaint: Nausea/Vomiting/Diarrhea Stated complaint: abd pain Time Seen by Provider: 04/07/23 07:38 History of Present Illness HPI narrative: Patient is an 82-year-old female presented today with abdominal discomfort nausea and diarrhea that is persisting for the last 9 days. Initially started with some nausea vomiting and diarrhea but she has not had any vomiting since last Thursday most recent bowel movement was yesterday evening. She states she has been going to regularly that her rectum is raw but there is been no blood in the stool or any fevers. No recent hospitalizations or antibiotic use. No significant abdominal pain. Related Data Home Medications Medication Instructions Recorded Confirmed aspirin 81 mg tablet,delayed 81 mg PO DAILY [facility] 02/06/21 12/30/22 release albuterol sulfate 90 mcg/actuation 1 inh inhalation BID PRN 10/30/22 12/30/22 aerosol inhaler atorvastatin 10 mg tablet 10 mg PO DAILY 12/30/22 12/30/22 hydrochlo
--- NOTE | 2023-04-07 08:11 | ECG_ITS ---
APPROVED REPORT Exam: Resting ECG HR:78 bpm ECG Measurements Heart Rate 78 AXES CO 224 P 32 QRSd 86 QRS 25 QT 403 T 5 QTc 436 Conclusion SINUS RHYTHM WITH FIRST DEGREE AV BLOCK POSSIBLE LEFT VENTRICULAR HYPERTROPHY [VOLTAGE CRITERIA PLUS LAE OR QRS WIDENING] NONSPECIFIC T-WAVE ABNORMALITY ABNORMAL ECG UNCONFIRMED REPORT Electronically signed by : Yordy Pereira MD 04/08/2023 09:02:15
[2023-04-07 08:14] LABS: Basophils # 0.1 K/mm3 (0-0.2); Basophils % 0.6 % (0.1-2.0); Eosinophils # 0.2 K/mm3 (0.0-0.4); Eosinophils % 1.7 % (0.1-12.0); Hematocrit 38.7 % (37.0-47.0); Hemoglobin 13.6 g/dL (12.2-16.2); Lymphocytes # 1.4 K/mm3 (0.7-4.5); Lymphocytes % 14.9 % (10-50); Mean Corpuscular Hemoglobin 31.8 pg (27.0-31.2); Mean Corpuscular Volume 90.7 fl (81-99); Mean Platelet Volume 7.8 fl (7.4-10.4); Monocytes # 0.8 K/mm3 (0.1-1.0); Neutrophils # 6.9 K/mm3 (1.8-7.8); Neutrophils % 73.9 % (37.0-80.0); Platelet Count 299 K/mm3 (142-424); Red Blood Count 4.27 M/mm3 (4.20-5.40); Red Cell Distribution Width 12.9 % (11.5-17.5); White Blood Count 9.3 K/mm3 (4.8-10.8)
[2023-04-07 08:34] LABS: Chloride 91 mmol/L (98-107); Sodium 125 mmol/L (136-145)
[2023-04-07 08:35] LABS: Potassium 3.6 mmoL/L (3.5-5.1)
[2023-04-07 08:37] LABS: Alanine Aminotransferase 29 U/L (12-78); Albumin Level 4.2 g/dl (3.5-5.0); Albumin/Globulin Ratio 1.5 (1.1-1.8); Alkaline Phosphatase 110 U/L (38-126); Anion Gap 13.6 mEq/L (5-15); Aspartate Amino Transferase 36 U/L (14-36); Bilirubin,Total 0.7 mg/dl (0.2-1.3); Blood Urea Nitrogen 13 mg/dl (7-17); Calcium 8.5 mg/dl (8.4-10.2); Carbon Dioxide 24 mmol/L (22.0-30.0); Creatinine Clearance Estimated 54 mL/min (50-200); Estimated Glomerular Filt Rate 60 ml/min (>60); GFR (African American) 73 ML/MIN (>60); Globulin 2.8 g/dL (1.3-3.2); Glucose 107 mg/dl (74-100); Lipase 96 U/L (23-300); Magnesium 1.8 mg/dl (1.6-2.3); Phosphorous 2.8 mg/dl (2.5-4.5)
--- NOTE | 2023-04-07 09:03 | XR_ITS ---
FINAL REPORT CLINICAL HISTORY: cough COMPARISON: None FINDINGS: The exam is somewhat underinflated. The heart size is normal. The mediastinum is normal. There is no focal infiltrate or edema. There are no pleural effusions. There is no pneumothorax. There is no osseous abnormality. IMPRESSION: No acute cardiopulmonary process Reviewed, Interpreted and Dictated by Chapo Hugo MD Transcribed by Xochitl Temple Authenticated and . [facility]
--- NOTE | 2023-04-07 09:10 | PC.NURSE ---
RAD at BS
[2023-04-07 09:14] LABS: Coronavirus 19, PCR Not Detected (NotDetected); Influenza A, PCR Not Detected (NotDetected); Influenza B, PCR Not Detected (NotDetected)
[2023-04-07 10:40] LABS: Troponin I < 0.01 ng/ml (0.00-0.034)
[2023-04-07 11:54] LABS: Chloride 95 mmol/L (98-107); Potassium 3.8 mmoL/L (3.5-5.1); Sodium 126 mmol/L (136-145)
[2023-04-07 11:57] LABS: Blood Urea Nitrogen 10 mg/dl (7-17); Creatinine Clearance Estimated 54 mL/min (50-200); Estimated Glomerular Filt Rate 81 ml/min (>60); GFR (African American) 97 ML/MIN (>60)
[2023-04-07 11:58] LABS: Anion Gap 9.8 mEq/L (5-15); Carbon Dioxide 25 mmol/L (22.0-30.0); Glucose 96 mg/dl (74-100)
[2023-04-07 12:24] LABS: Troponin I < 0.01 ng/ml (0.00-0.034)
== END 2023-04-07 12:15 | disposition home or self-care (01) ==
PROVIDERS: Emergency Provider Student in an Organized Health Care Education/Training Program; PCP Nurse Practitioner
DX: E86.0 Dehydration (principal); E87.1 Hypo-osmolality and hyponatremia; I44.0 Atrioventricular block, first degree; R11.2 Nausea with vomiting, unspecified; R19.7 Diarrhea, unspecified; R10.9 Unspecified abdominal pain; E03.9 Hypothyroidism, unspecified
CPT/HCPCS: 71045; 80048; 80053; 83690; 83735; 84100; 84484; 85025; 87636; 93005; 96361; 96374; 99291; J2405

== ENCOUNTER 2023-04-16 09:48 | Outpatient (CLI) | payer MEDICARE, OTHER, SELFPAY ==
--- NOTE | 2023-04-16 09:49 | US_ITS ---
FINAL REPORT CLINICAL HISTORY: yearly f/u thyroid nodules COMPARISON: 04/18/2022 FINDINGS: THYROID ULTRASOUND: The right lobe of the thyroid gland has been resected, as was also seen on the prior exam of April 2022. There are 2 nodules present in the left lobe of the thyroid gland, which measures 5.7 x 2.7 x 3.1 cm in size. The first nodule measures 5 x 5 x 4 mm in size, is mixed cystic and solid, isoechoic, a TI-RADS category 2 nodule. This nodule measured 6 x 5 x 3 mm on the prior exam. The second nodule measures 10 x 10 x 7 mm in size, is solid, hypoechoic, a TI-RADS category 4 nodule. This nodule measures 13 x 12 x 8 mm on the prior exam. The isthmus of the thyroid gland is unremarkable in appearance and measures 5 mm in thickness. IMPRESSION: Prior resection of the right lobe of the thyroid gland. Two stable nodules are present in the left thyroid gland, not significantly changed since the prior exam of 2022. Reviewed, Interpreted and Dictated by Rory Ortiz III, MD Transcribed by Xochitl Temple Authenticated and [facility]
[2023-04-16 10:50] LABS: Basophils % 0.5 % (0.1-2.0); Eosinophils # 0.1 K/mm3 (0.0-0.4); Hematocrit 38.6 % (37.0-47.0); Hemoglobin 12.9 g/dL (12.2-16.2); Lymphocytes # 0.9 K/mm3 (0.7-4.5); Lymphocytes % 12.5 % (10-50); Mean Corpuscular HGB Conc 33.4 g/dL (31.8-35.4); Mean Corpuscular Hemoglobin 31.2 pg (27.0-31.2); Mean Corpuscular Volume 93.6 fl (81-99); Mean Platelet Volume 7.7 fl (7.4-10.4); Monocytes # 0.3 K/mm3 (0.1-1.0); Monocytes % 4.8 % (1.7-9.3); Neutrophils # 5.7 K/mm3 (1.8-7.8); Neutrophils % 80.2 % (37.0-80.0); Platelet Count 378 K/mm3 (142-424); Red Blood Count 4.12 M/mm3 (4.20-5.40); Red Cell Distribution Width 13.1 % (11.5-17.5); White Blood Count 7.1 K/mm3 (4.8-10.8)
[2023-04-16 11:11] LABS: Chloride 98 mmol/L (98-107)
[2023-04-16 11:12] LABS: Potassium 4.2 mmoL/L (3.5-5.1); Sodium 132 mmol/L (136-145)
[2023-04-16 11:14] LABS: Alanine Aminotransferase 26 U/L (12-78); Aspartate Amino Transferase 29 U/L (14-36); Bilirubin,Total 0.5 mg/dl (0.2-1.3); Blood Urea Nitrogen 13 mg/dl (7-17); Estimated Glomerular Filt Rate 80 ml/min (>60); GFR (African American) 97 ML/MIN (>60)
[2023-04-16 11:15] LABS: Albumin Level 3.9 g/dl (3.5-5.0); Albumin/Globulin Ratio 1.6 (1.1-1.8); Alkaline Phosphatase 105 U/L (38-126); Anion Gap 11.2 mEq/L (5-15); Carbon Dioxide 27 mmol/L (22.0-30.0); Globulin 2.4 g/dL (1.3-3.2); Glucose 121 mg/dl (74-100); Magnesium 1.7 mg/dl (1.6-2.3); Total Protein,Serum 6.3 g/dl (6.3-8.2)
[2023-04-16 11:32] LABS: Free T4 (Free Thyroxine) 1.91 ng/dl (0.78-2.19)
[2023-04-16 11:46] LABS: Thyroid Stimulating Hormone 1.06 uIU/mL (0.465-4.68)
== END 2023-04-16 23:59 ==
PROVIDERS: Nurse Practitioner; PCP Nurse Practitioner; Visit Provider Otolaryngology
DX: E04.1 Nontoxic single thyroid nodule (principal); E03.9 Hypothyroidism, unspecified; R19.7 Diarrhea, unspecified; R53.83 Other fatigue
CPT/HCPCS: 36415; 76536; 80053; 83735; 84439; 84443; 85025

== ENCOUNTER 2023-11-05 15:12 | Outpatient (CLI) | payer MEDICARE, OTHER, SELFPAY ==
--- NOTE | 2023-11-05 15:18 | CA_ITS ---
APPROVED REPORT EXAM: Comprehensive 2D, Doppler, and color-flow Echocardiogram Fashion Photographer: Grace Mahajan, SILVIA, RVS Ht: 5 ft 7 in Wt: 167lbs BSA: 1.87 BP: 165/74 mmHg Indications: CAD, HTN, Restrictive lung disease, Abn EKG, Murmur, HLD, Hypothyroidism, Fatigue 2D Dimensions IVSd 0.81 cm LVEF (Visual) 74.80 % PWd 1.13 cm LA Volume 70.80 mL LVDd 4.93 cm LA Volume Index 37.229797 mL/m2 (M/F) 16-34 LVDs 2.77 cm EF AP4 47.90 % Aortic Root 2.73 cm GL Strain -13.9 % Left Atrium 3.68 cm RVID Base (AP4) 2.91 cm (M/F) 2.5-4.1 LVOT 2.00 cm (M/F) 1.5-2.5 M-Mode Dimensions LVDd 4.93 cm (3.5-5.7) Ao Diam 2.94 cm (2.0-3.7) LVDs 2.77 cm (3.5-5.7) IVSd 0.81 cm (0.6-1.1) PWd 1.13 cm (0.6-1.1) EPSs 0.54 cm FS 43.80% TAPSE 1.51 (<1.7) LV Diastology E Decel Time 325 (160-240 msec) E/A Ratio 0.61 MED E' 7.3 (>= 7 cm/sec) MED A' 14.40 cm/s E'/MED E' Ratio 9.59 (<= 14) LAT E' 5.8 (>= 10 cm/sec) LAT A' 9.20 cm/s E/LAT E' Ratio 12.07 (<= 14) Aortic Valve LVOT Max 249.0 (70-110 cm/s) CELENA Index 1.63 cm2/m2 LVOT VTI 35.46 cm AoV Peak Mil. 178.0 (50-130 cm/s) AO Peak GR. 10.40 mmHg AO Mean GR. 6.60 (<5 mmHg) AO VTI 36.7 (18-25 cm) CELENA (VTI) 3.04 (2.5-4.5 cm2) Mitral Valve MV E Max Mil. 70.0 (40-130 cm/s) MV A Velocity 114.0 (40-130 cm/s) E/A Ratio 0.61 MV Decel. Time 325 (160-240 ms) Tricuspid Valve TR P. Velocity 263.00 cm/s RAP Estimate 10.00 mmHg RVSP 37.70 mmHg Left Ventricle The left ventricle is normal size. The left ventricular systolic function is hyperdynamic. There is mildly increased LV wall thickness. Proximal septal thickening is noted. IVSD 1.6 cm. 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 Intracavitary gradient is also present. There is normal LV segmental wall motion. Transmitral Doppler flow pattern suggests impaired LV relaxation. LVEF is 70%. Right Ventricle The right ventricle is normal size. The right ventricular systolic function is normal. Atria Left atrium is moderately dilated. The right atrium is mildly dilated. There is no Doppler evidence of interatrial shunt. Aortic Valve The aortic valve is mildly thickened. The aortic valve opens well. There is no aortic valvular stenosis. Trace aortic regurgitation. Mitral Valve The mitral valve leaflets are mildly thickened. No evidence of mitral valve stenosis. Mild mitral regurgitation. Tricuspid Valve Tricuspid valve leaflets are thin and pliable. Mild tricuspid regurgitation. RVSP is 25-30 mmHg. Pulmonic Valve The pulmonary valve is normal in structure. Trace pulmonic regurgitation. Great Vessels The aortic root is normal in size. The ascending aorta is normal in size. IVC is normal in size and collapses >50% with inspiration. Pericardium There is no pericardial effusion. Other Information Study Quality: Fair Conclusion Hyperdynamic LV systolic function (LVEF 70%). Markedly increased LV wall thickness. Proximal septal thickening is noted. IVSD 1.6 cm. 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 Intracavitary gradient is also present. Normal RV size and function. Biatrial dilation. Mild MR, mild TR. In the setting of hyperdynamic LV systolic function, markedly increased LV wall thickness, and biatrial dilation, further evaluation with cardiac MRI (amyloidosis protocol) is suggested to evaluate for infiltrative cardiomyopathy vs HCM. Electronically signed by : Sharon Chambers MD 11/08/2023 00:31:32
== END 2023-11-05 23:59 | disposition home or self-care (01) ==
LOC: RT 15:15
PROVIDERS: Visit Provider Nurse Practitioner
DX: I34.0 Nonrheumatic mitral (valve) insufficiency (principal); I36.1 Nonrheumatic tricuspid (valve) insufficiency; R94.31 Abnormal electrocardiogram [ECG] [EKG]
CPT/HCPCS: 93306

== ENCOUNTER 2023-12-09 09:13 | Outpatient (CLI) | payer MEDICARE, OTHER, SELFPAY ==
--- NOTE | 2023-12-09 09:33 | MR_ITS ---
APPROVED REPORT Computer Application Developer: CLINICAL INDICATION Increased LV wall thickness and LVOT obstruction on TTE. Evaluate for infiltrative cardiomyopathy. TECHNIQUE Image Acquisition: Cardiac magnetic resonance (CMR) was performed on Siemens Espree MRI 1.5T scanner. Software platform sequences were performed using the Siemens TechZel MR B19 platform. A set of three-plane, low-resolution, large fapso-bi-szga localizers were initially acquired. Then axial, coronal, sagittal TrueFISP, as well as axial HASTE images, were obtained. These were followed by gated TrueFISP breathold cinematic sequences obtained in the short axis with 8 mm slices and 2 mm gaps, 2-chamber (vertical long axis), 3-chamber, 4-chamber (horizontal long axis). A bolus of contrast was injected intravenously with first-pass sequences obtained in the short axis and four-chamber planes. After approximately 10 minutes, a TI feed blender sequence was performed to determine the optimal TI time. Using the optimized TI time, delayed contrast enhancement segmented inversion???recovery TurboFLASH sequences were obtained in the short axis, 2-chamber, 3-chamber, and 4-chamber projections. 2D-velocity phase mapping was performed. Functional parameters were calculated by offline analysis on an independent workstation ([email or web address], [place] Everywhere). Contrast: ProHance??? (Gadoteridol) FINDINGS MORPHOLOGY AND FUNCTION Left ventricle: The left ventricle is normal in size. The indexed left ventricular end-diastolic volume (LVEDVi) is 52 ml/m2 (reference range 57-105 ml/m2 in males, 56-96 ml/m2 in females). Normal left ventricular systolic function is present. There is increased left ventricular wall thickness and proximal septal thickening, up to 13.3 mm. There are no regional wall motion abnormalities noted. LVEF is calculated at 64.8% (reference range 57-77%). Right ventricle: The right ventricle is normal in size. The indexed right ventricular end-diastolic volume (RVEDVi) is 58 ml/m2 (reference range 61-121 ml/m2 in males, 48-112 ml/m2 in females). Normal right ventricular systolic function is present. RVEF is calculated at 62% (reference range 52-72% in males, 51-71% in females). Atria: The left atrium is mildly dilated. The maximum indexed left atrial volume is 55 ml/m2 (reference range 26-52 ml/m2 in males, 27-53 ml/m2 in females). The right atrium is normal in size. The maximum indexed right atrial volume is 28 ml/m2 (reference range 18-90 ml/m2). Aorta: The diameter of the aortic annulus is normal, measuring 28 mm (coronal view reference range 21-30 mm in males, 19-27 mm in females). The diameter of the aortic sinus is normal, measuring 29 mm (coronal view reference range 25-42 mm in males, 24-36 mm in females). The diameter of the sinotubular junction is normal, measuring 25 mm (coronal view reference range 18-32 mm in males, 18-28 mm in females). The diameters of the ascending and descending thoracic aorta are normal. Main pulmonary artery: The main pulmonary artery diameter is normal. Pericardium: The pericardial thickness is normal. The pericardial thickness measures 1.7 mm (normal < 4.0 mm). There is no pericardial effusion. VALVES There is no significant valvular stenosis or regurgitation of the mitral, aortic, tricuspid, or pulmonic valve noted visually. Systolic anterior motion of the mitral valve is present, with presence of LVOT obstruction at rest. Ratio of pulmonary to systemic flow, Qp:Qs ratio = 0.8 (normal < or = 1.2, hemodynamically significant shunt > 1.5), demonstrating no evidence of hemodynamically significant shunt. TISSUE CHARACTERIZATION Resting Perfusion: Normal myocardial blood flow at rest. No evidence of resting hypoperfusion. Myocardial Fibrosis and/or edema: Normal gadolinium kinetics are present. No evidence of late gadolinium enhancement is noted, consistent with absence of myocardial scarring, infarction, or necrosis. T2-weighted imaging demonstrates no evidence of myocardial edema or inflammation. OTHER Right hemidiaphragm is elevated. IMPRESSION Normal LV size with normal LV systolic function. LVEDVi= 52 ml/m2 and LVEF= 64.8%. Increase in LV wall thickness and proximal septal thickening, measuring up to 13.3 mm. Presence of systolic anterior motion (GLORIA) with possible LVOT obstruction at rest. Normal RV size with normal RV systolic function. RVEDVi= 58 ml/m2 and RVEF= 62%. Mild LA dilation. No CMR evidence of myocardial scarring, infarction, or necrosis. No evidence of myocardial edema or inflammation. Perfusion analysis demonstrates normal blood flow at rest with no evidence of resting hypoperfusion. Ratio of pulmonary to systemic flow, Qp:Qs ratio = 0.8 (normal < or = 1.2, hemodynamically significant shunt > 1.5), demonstrating no evidence of hemodynamically significant shunt. Right hemidiaphragm is elevated. Overall, this CMR demonstrates presence of normal biventricular size and function. There is increase in LV wall thickness and GLORIA with possible LVOT obstruction, but not meeting HCM criteria. There is also no evidence of infiltrative cardiomyopathy. Due to proximal septal thickening and LVOT obstruction, further BP control is recommended. Beta-blockade is suggested in the setting, if clinically feasible. COMPARISON None CRITICAL RESULT None COMMUNICATION Per this written report The findings of this cardiac MR were reviewed, reported, and signed by Khris Chambers MD (Cable Installer). Conclusion Electronically signed by : Sharon Chambers MD 12/21/2023 00:47:00
[2023-12-09 09:44] LABS: Blood Urea Nitrogen 19 mg/dl (7-17); Estimated Glomerular Filt Rate 69 ml/min (>60); GFR (African American) 83 ML/MIN (>60)
[2023-12-09] MEDS: SODIUM CHLORIDE 0.9% 10ML SYR (RAD ONLY) 10 ML IV (11:23)
[2023-12-09] MEDS: GADOTERIDOL INJ 20ML SYRINGE 16 ML IV (11:23)
[2023-12-09] MEDS: 0.9 % SODIUM CHLORIDE 50 ML VIAL IV (11:24)
== END 2023-12-09 23:59 | disposition home or self-care (01) ==
LOC: RAD 09:15
PROVIDERS: PCP Nurse Practitioner; Visit Provider Nurse Practitioner
DX: R94.31 Abnormal electrocardiogram [ECG] [EKG] (principal); I10 Essential (primary) hypertension; G47.33 Obstructive sleep apnea (adult) (pediatric); E78.2 Mixed hyperlipidemia; I25.10 Atherosclerotic heart disease of native coronary artery without angina pectoris; R93.1 Abnormal findings on diagnostic imaging of heart and coronary circulation
CPT/HCPCS: 36415; 75561; 82565; 84520; A9576

== ENCOUNTER 2024-05-18 12:54 | Outpatient (CLI) | payer MEDICARE, OTHER, SELFPAY ==
--- NOTE | 2024-05-18 12:56 | US_ITS ---
FINAL REPORT TECHNIQUE: Sonographic images of the thyroid were obtained. CLINICAL HISTORY: observation of thyroid nodule COMPARISON: 04/16/2023 FINDINGS: THYROID ULTRASOUND The right lobe of the thyroid is surgically absent. The left thyroid lobe measures 4.8 x 3.2 x 1.9 cm. The parenchyma shows normal echogenicity. There is a mixed solid and cystic lesion in the mid left lobe of the thyroid measuring 6 mm in greatest dimension, TI-RADS 3. There is a solid nodule in the lower pole of the left lobe of the thyroid measuring 1.0 x 1.0 cm, TI-RADS 4. IMPRESSION: Prior resection right lobe of the thyroid. Two stable nodules in the left lobe of the thyroid. Recommend follow-up in 1 year per TI-RADS criteria. Reviewed, Interpreted and Dictated by Chapo Hugo MD Transcribed by Marion Thompson Authenticated and [facility]
[2024-05-18 14:42] LABS: Thyroid Stimulating Hormone 0.91 uIU/mL (0.465-4.68)
== END 2024-05-18 23:59 | disposition home or self-care (01) ==
LOC: RAD 12:56
PROVIDERS: PCP Nurse Practitioner; Visit Provider Nurse Practitioner
DX: E04.1 Nontoxic single thyroid nodule (principal)
CPT/HCPCS: 36415; 76536; 84439; 84443